=== PATIENT | female | born 1975 | race Caucasian/White ===

== ENCOUNTER 2024-12-14 10:07 | Emergency (ER) | payer MEDICAID ==
[~2024-12-14] VITALS: Ht 157.5 cm; Wt 89.0 kg
[2024-12-14 10:29] VITALS: O2SAT 100
[2024-12-14 10:55] LABS: BASOPHILS % 1.6 % (0.0-2.0); EOSINOPHILS % 2.2 % (0.0-5.0); HEMATOCRIT. 31.4 % (36.0-48.0); HEMOGLOBIN. 9.1 g/dL (12.0-16.0); LYMPHOCYTES % 21.0 % (20.0-50.0); MEAN PLATELET VOLUME 9.1 fl (7.4-10.4); MONOCYTES % 6.4 % (2.0-8.0); NEUTROPHILS % 68.8 % (40.0-76.0); PLATELET 397 x1000/uL (130-400); RED BLOOD CELL COUNT 4.94 mill/uL (4.2-5.4); RED CELL DISTRIBUTION WIDTH 25.8 % (11.6-14.6)
[2024-12-14 10:57] LABS: ADD RBC MORPHOLOGY YES
[2024-12-14 11:07] LABS: CREATININE 0.7 mg/dL (0.6-1.0); UREA NITROGEN BLOOD 11 mg/dL (9-23)
[2024-12-14 11:12] LABS: PLATELET ESTIMATE NORMAL
[2024-12-14] MEDS ORDERED: IRON-26 MT (11:54)
[2024-12-14 12:05] VITALS: BP 130/82; PULSE 89; RESP 18; TEMP 36.7; O2SAT 100
== END 2024-12-14 12:07 | disposition home or self-care (01) ==
LOC: ER 10:07
DX: D64.9 Anemia, unspecified (principal); Z98.890 Other specified postprocedural states
CPT/HCPCS: 36415; 80048; 85025; 86850; 86900; 99283